=== PATIENT | female | born 1970 | race Caucasian/White ===

== ENCOUNTER 2019-04-01 05:19 | Inpatient (IN) ==
[2019-04-01] MEDS ORDERED: 0.9 % Sodium Chloride 1,000 ML ONE ×4 (05:29→07:24)
[2019-04-01] MEDS ORDERED: Heparin 1,000 UNITS/500 mL 500 ML ONE (05:29)
[2019-04-01] MEDS ORDERED: Verapamil 5 MG/2 ML VIAL ONE (05:29)
[2019-04-01] MEDS ORDERED: ISOVUE-370 200 ML INFUS..BTL ONE (05:30)
[2019-04-01] MEDS ORDERED: *HR* Heparin 10,000 UNIT/10 ML VIAL ONE (05:30)
[2019-04-01] MEDS ORDERED: Nitroglycerin 1,000 MCG/10 ML VIAL IV ONE (05:30)
[2019-04-01] MEDS ORDERED: *HR* Norepinephrine 4 MG/4 ML VIAL IVC ONE (06:26)
[2019-04-01] MEDS ORDERED: 0.9 % Sodium Chloride 250 ML ONE (06:26)
[2019-04-01] MEDS ORDERED: 0.9 % Sodium Chloride 500 ML ONE ×3 (07:02→08:28)
[2019-04-01] MEDS ORDERED: EPINEPHrine 1 MG/ML VIAL ONE (07:08)
[2019-04-01] MEDS ORDERED: D5% in Water 250 ML ONE (07:08)
[2019-04-01] MEDS ORDERED: *HR* FentaNYL (PF) 100 MCG/2 ML VIAL ONE (07:27)
[2019-04-01] MEDS ORDERED: Heparin 25,000 UNIT/250 ML D5W 25,000 UNIT/250 ML IV.SOLN IVC ONE (07:47)
[2019-04-01] MEDS ORDERED: *HR* Heparin 5,000 UNIT/ML VIAL IVP PRN ×2 (07:50)
[2019-04-01 08:11] LABS: Basophils % 0.2 %; Eosinophils # 0.1 K/mcL (0.0-0.6); Eosinophils % 0.4 %; Hemoglobin 11.1 g/dL (11.5-15.4); Immature Granulocytes % 1.9 % (0-4); Lymphocytes # 2.2 K/mcL (0.6-4.6); Lymphocytes % 15.8 %; Mean Corpuscular HGB Conc 30.8 g/dL (31.6-35.5); Mean Corpuscular Hemoglobin 32.8 pg (28.0-33.3); Mean Corpuscular Volume 106.5 fL (83.0-100.0); Mean Platelet Volume 9.8 fL (9.4-12.4); Monocytes # 0.4 K/mcL (0.0-1.3); Monocytes % 2.7 %; Neutrophils # 11.1 K/mcL (1.6-8.9); Platelet Count 229 K/mcL (140-400); Red Blood Count 3.38 M/mcL (3.82-4.97); Red Cell Distribution Width 12.6 % (11.5-14.5); White Blood Count 14.1 K/mcL (4.3-11.1)
[2019-04-01] MEDS ORDERED: Sodium Bicarbonate 50 MEQ/50 ML VIAL IVP ONE ×2 (08:21→13:07)
[2019-04-01] MEDS ORDERED: Insulin Regular, Human 100 UNIT/ML IV ONE (08:31)
[2019-04-01] MEDS ORDERED: Insulin Regular, Human 100 UNIT/ML IV PRN ×2 (08:31)
[2019-04-01] MEDS ORDERED: Ringers Solution, Lactated 1,000 ML IVC ONE ×2 (08:32→11:19)
[2019-04-01 08:41] LABS: BUN/Creatinine Ratio 29 (6-26); Blood Urea Nitrogen 32 mg/dL (6-20); Calcium 6.5 mg/dL (8.6-10.3); Carbon Dioxide 5 mEq/L (23-29); Chloride 108 mEq/L (98-107); Glucose 820 mg/dL (70-105); Osmolality,Calculated 343 (280-300); Potassium 3.3 mEq/L (3.5-5.1); Sodium 143 mEq/L (136-145); Troponin I 14.28 ng/mL (< 0.04); eGFR For African Americans > 60 (> 60); eGFR For Non-African Americans 53 (> 60)
[2019-04-01] MEDS ORDERED: Norepinephrine 4 MG in 0.9 % Sodium Chloride 250 ML IVC SCH (08:45)
[2019-04-01 09:21] LABS: ABG Base Excess -26 mEq/L (-2 to 3); ABG HCO3 6 mEq/L (21-27); ABG Oxygen Saturation 100 % (95-98); ABG PCO2 32 mmHg (35-45); ABG PH 6.88 pH Units (7.32-7.45); ABG PO2 290 mmHg (85-104); ABG TCO2 7 mEq/L (20-26); Blood Gas Modality ASSIST CONTROL; Blood Gas VT 550 cc
[2019-04-01] MEDS: Sodium Bicarbonate 150 MEQ in D5% in Water 1,000 ML IVC SCH ×2 (09:23→16:10)
[2019-04-01] MEDS: Heparin 25,000 UNIT/250 ML D5W 25,000 UNIT/250 ML IV.SOLN IVC SCH (09:25)
[2019-04-01] MEDS: EPINEPHrine 1 MG in D5% in Water 250 ML IVC SCH ×2 (09:25→12:57)
[2019-04-01] MEDS: Insulin Human Regular 100 UNIT in 0.9 % Sodium Chloride 100 ML IVC SCH ×3 (10:09→18:42)
[2019-04-01] MEDS ORDERED: Amiodarone Premix 150 MG/100 ML BAG IVPB ONE (10:55)
[2019-04-01] MEDS ORDERED: Amiodarone Premix 360 MG/200 ML BAG IVC ONE (10:55)
[2019-04-01 11:24] LABS: Alanine Aminotransferase 99 Units/L (7-52); Aspartate Amino Transferase 259 Units/L (13-39)
[2019-04-01] MEDS: FentaNYL (PF) 1,000 MCG in 0.9 % Sodium Chloride 80 ML IVC SCH ×3 (11:38→18:30)
[2019-04-01] MEDS: Amiodarone Premix 360 MG/200 ML BAG IVC SCH ×2 (11:38→16:53)
[2019-04-01] MEDS ORDERED: Norepinephrine 16 MG in 0.9 % Sodium Chloride 250 ML IVC SCH (11:45)
[2019-04-01] MEDS ORDERED: Artificial Tears SOLN 15 ML BOTTLE BOTH EYES PRN (11:46)
[2019-04-01 11:52] LABS: Alanine Aminotransferase 192 Units/L (7-52); Albumin 2.9 g/dL (3.5-5.7); Albumin/Globulin Ratio 1.4 (1.1-2.2); Alkaline Phosphatase 128 Units/L (34-104); Aspartate Amino Transferase 706 Units/L (13-39); BUN/Creatinine Ratio 26 (6-26); Bilirubin,Total 0.8 mg/dL (0.3-1.0); Blood Urea Nitrogen 28 mg/dL (6-20); Calcium 6.3 mg/dL (8.6-10.3); Carbon Dioxide 6 mEq/L (23-29); Chloride 110 mEq/L (98-107); Globulin 2.1 g/dL (2.4-3.5); Glucose 764 mg/dL (70-105); Magnesium 1.8 mg/dL (1.6-2.6); Osmolality,Calculated 340 (280-300); Phosphorous 3.4 mg/dL (2.7-4.5); Potassium 3.3 mEq/L (3.5-5.1); Sodium 144 mEq/L (136-145); eGFR For African Americans > 60 (> 60); eGFR For Non-African Americans 55 (> 60)
[2019-04-01] MEDS: Pantoprazole 40 MG VIAL IVP SCH (11:56)
[2019-04-01] MEDS: Artificial Tears SOLN 15 ML BOTTLE BOTH EYES SCH ×4 (12:01→23:17)
[2019-04-01] MEDS: Calcium Gluconate 1gm/50mL 1 GM/50 ML BAG IVPB SCH ×5 (12:27→16:51)
[2019-04-01 12:45] LABS: Amphetamine Screen,Urine Negative ng/mL (Cutoff=1000); Barbiturate Screen,Urine Negative ng/mL (Cutoff=200); Benzodiazepines Screen,Urine Positive ng/mL (Cutoff=200); Cannabinoid Screen,Urine Negative ng/mL (Cutoff = 50); Cocaine Screen,Urine Negative ng/mL (Cutoff= 300); Opiate Screen,Urine Negative ng/mL (Cutoff=300); Phencyclidine Screen,Urine Negative ng/mL (Cutoff=25)
[2019-04-01] MEDS: Norepinephrine 16 MG in 0.9 % Sodium Chloride 500 ML IVC SCH (12:46)
[2019-04-01 13:02] LABS: VBG HCO3 5 mEq/L (21-27); VBG PCO2 42 mmHg (41-51); VBG PH 6.71 pH Units (7.32-7.42); VBG PO2 80 mmHg (25-50)
[2019-04-01 13:06] LABS: INR 1.1; Prothrombin Time 12.8 Seconds (9.4-12.1)
[2019-04-01] MEDS ORDERED: Sodium Bicarbonate 50 MEQ/50 ML VIAL ONE (13:13)
[2019-04-01 13:19] LABS: ABG Base Excess -26 mEq/L (-2 to 3); ABG HCO3 5 mEq/L (21-27); ABG Oxygen Saturation 99 % (95-98); ABG PCO2 27 mmHg (35-45); ABG PO2 247 mmHg (85-104); ABG TCO2 6 mEq/L (20-26); Blood Gas Modality ASSIST CONTROL; Blood Gas VT 550 cc
[2019-04-01] MEDS ORDERED: Potassium Chloride Elixir 20 MEQ/15 ML UDC PO ONE (13:20)
[2019-04-01 13:21] LABS: BUN/Creatinine Ratio 25 (6-26); Blood Urea Nitrogen 28 mg/dL (6-20); Calcium 6.6 mg/dL (8.6-10.3); Carbon Dioxide 6 mEq/L (23-29); Chloride 109 mEq/L (98-107); Glucose 748 mg/dL (70-105); Osmolality,Calculated 338 (280-300); Potassium 3.1 mEq/L (3.5-5.1); Sodium 143 mEq/L (136-145); eGFR For African Americans > 60 (> 60); eGFR For Non-African Americans 53 (> 60)
[2019-04-01 13:44] LABS: Heparin anti-factor XA UFH 1.18 IU/mL (0.30-0.70)
[2019-04-01] MEDS: EPINEPHrine 5 MG in D5% in Water 250 ML IVC SCH ×2 (14:32→16:02)
[2019-04-01 15:06] LABS: BUN/Creatinine Ratio 26 (6-26); Blood Urea Nitrogen 29 mg/dL (6-20); Calcium 7.4 mg/dL (8.6-10.3); Carbon Dioxide 11 mEq/L (23-29); Chloride 107 mEq/L (98-107); Glucose 821 mg/dL (70-105); Osmolality,Calculated 348 (280-300); Potassium 3.5 mEq/L (3.5-5.1); Sodium 146 mEq/L (136-145); eGFR For African Americans > 60 (> 60); eGFR For Non-African Americans 52 (> 60)
[2019-04-01] MEDS: Hydrocortisone Sodium Succ 100 MG/2 ML VIAL IVP SCH ×2 (15:12→23:33)
[2019-04-01] MEDS: Cisatracurium 200 MG in 0.9 % Sodium Chloride 180 ML IVC SCH (15:54)
[2019-04-01 16:02] LABS: VBG HCO3 10 mEq/L (21-27); VBG PCO2 33 mmHg (41-51); VBG PH 7.09 pH Units (7.32-7.42); VBG PO2 81 mmHg (25-50)
[2019-04-01 16:17] LABS: BUN/Creatinine Ratio 25 (6-26); Blood Urea Nitrogen 28 mg/dL (6-20); Carbon Dioxide 10 mEq/L (23-29); Chloride 109 mEq/L (98-107); Glucose 756 mg/dL (70-105); Osmolality,Calculated 342 (280-300); Potassium 3.6 mEq/L (3.5-5.1); Sodium 145 mEq/L (136-145); eGFR For African Americans > 60 (> 60); eGFR For Non-African Americans 52 (> 60)
[2019-04-01 16:24] LABS: Troponin I > 73.00 ng/mL (< 0.04)
[2019-04-01 17:38] LABS: ABG Base Excess -10 mEq/L (-2 to 3); ABG HCO3 13 mEq/L (21-27); ABG Oxygen Saturation 100 % (95-98); ABG PCO2 20 mmHg (35-45); ABG PH 7.43 pH Units (7.32-7.45); ABG PO2 470 mmHg (85-104); ABG TCO2 14 mEq/L (20-26); Blood Gas Modality ASSIST CONTROL; Blood Gas VT 550 cc
[2019-04-01] MEDS: Cefepime HCl 2,000 MG in 0.9 % Sodium Chloride Mini Bag 100 ML IVPB SCH (17:48)
[2019-04-01 17:50] LABS: VBG HCO3 14 mEq/L (21-27); VBG Ionized Calcium 1.13 mmol/L (1.15-1.35); VBG PCO2 30 mmHg (41-51); VBG PH 7.27 pH Units (7.32-7.42); VBG PO2 128 mmHg (25-50)
[2019-04-01 18:13] LABS: BUN/Creatinine Ratio 24 (6-26); Blood Urea Nitrogen 28 mg/dL (6-20); Carbon Dioxide 14 mEq/L (23-29); Chloride 106 mEq/L (98-107); Glucose 696 mg/dL (70-105); Magnesium 2.2 mg/dL (1.6-2.6); Osmolality,Calculated 335 (280-300); Phosphorous < 1.0 mg/dL (2.7-4.5); Potassium 3.6 mEq/L (3.5-5.1); Sodium 143 mEq/L (136-145); eGFR For African Americans 59 (> 60); eGFR For Non-African Americans 48 (> 60)
[2019-04-01] MEDS ORDERED: Potassium Phosphate 44 MEQ in 0.9 % Sodium Chloride 250 ML IVPB ONE (18:14)
[2019-04-01 20:23] LABS: VBG HCO3 17 mEq/L (21-27); VBG PCO2 29 mmHg (41-51); VBG PH 7.38 pH Units (7.32-7.42); VBG PO2 89 mmHg (25-50)
[2019-04-01 20:27] LABS: ABG Base Excess -5 mEq/L (-2 to 3); ABG HCO3 17 mEq/L (21-27); ABG Oxygen Saturation 100 % (95-98); ABG PCO2 22 mmHg (35-45); ABG PH 7.49 pH Units (7.32-7.45); ABG PO2 164 mmHg (85-104); ABG TCO2 18 mEq/L (20-26); Blood Gas Modality ASSIST CONTROL; Blood Gas VT 550 cc
[2019-04-01] MEDS: Chlorhexidine Rinse 15 ML MOUTHWASH MM SCH (20:34)
[2019-04-01] MEDS: *HR* Ticagrelor 90 MG TABLET PO SCH (20:35)
[2019-04-01 21:04] LABS: BUN/Creatinine Ratio 25 (6-26); Blood Urea Nitrogen 31 mg/dL (6-20); Carbon Dioxide 17 mEq/L (23-29); Chloride 109 mEq/L (98-107); Glucose 513 mg/dL (70-105); Osmolality,Calculated 334 (280-300); Potassium 3.7 mEq/L (3.5-5.1); Sodium 147 mEq/L (136-145); Troponin I > 73.00 ng/mL (< 0.04); eGFR For African Americans 55 (> 60); eGFR For Non-African Americans 46 (> 60)
[2019-04-01] MEDS: 0.45 % Sodium Chloride w/KCl 20 MEQ/1,000 ML MLS IVC SCH (22:20)
[2019-04-01 23:35] LABS: Potassium 3.5 mEq/L (3.5-5.1)
[2019-04-02 00:21] LABS: VBG HCO3 22 mEq/L (21-27); VBG PCO2 30 mmHg (41-51); VBG PH 7.47 pH Units (7.32-7.42); VBG PO2 217 mmHg (25-50)
[2019-04-02 00:38] LABS: Calcium 7.9 mg/dL (8.6-10.3); Phosphorous 1.2 mg/dL (2.7-4.5); Potassium 3.5 mEq/L (3.5-5.1)
[2019-04-02] MEDS: 0.45 % Sodium Chloride w/KCl 20 MEQ/1,000 ML MLS IVC SCH ×2 (02:29→03:12)
[2019-04-02] MEDS: D5% in 0.45% NACL w KCl 20 MEQ/1,000 ML MLS IVC SCH ×6 (02:30→22:22)
[2019-04-02 02:36] LABS: VBG HCO3 24 mEq/L (21-27); VBG PCO2 28 mmHg (41-51); VBG PH 7.55 pH Units (7.32-7.42); VBG PO2 301 mmHg (25-50)
[2019-04-02 02:52] LABS: Calcium 7.8 mg/dL (8.6-10.3); Potassium 3.7 mEq/L (3.5-5.1)
[2019-04-02 02:56] LABS: ABG Base Excess 3 mEq/L (-2 to 3); ABG HCO3 25 mEq/L (21-27); ABG Oxygen Saturation 99 % (95-98); ABG PCO2 27 mmHg (35-45); ABG PH 7.57 pH Units (7.32-7.45); ABG PO2 117 mmHg (85-104); ABG TCO2 25 mEq/L (20-26); Blood Gas Modality ASSIST CONTROL; Blood Gas VT 450 cc
[2019-04-02] MEDS: Artificial Tears SOLN 15 ML BOTTLE BOTH EYES SCH ×6 (03:09→23:38)
[2019-04-02 04:16] LABS: VBG HCO3 25 mEq/L (21-27); VBG PCO2 28 mmHg (41-51); VBG PH 7.56 pH Units (7.32-7.42); VBG PO2 297 mmHg (25-50)
[2019-04-02] MEDS: Amiodarone Premix 360 MG/200 ML BAG IVC SCH ×2 (04:20→15:03)
[2019-04-02 04:45] LABS: Albumin 2.6 g/dL (3.5-5.7); Albumin/Globulin Ratio 1.4 (1.1-2.2); Bilirubin,Direct 0.2 mg/dL (0.0-0.2); Bilirubin,Indirect 0.2 mg/dL (0.0-1.0); Bilirubin,Total 0.4 mg/dL (0.3-1.0); Globulin 1.8 g/dL (2.4-3.5); Magnesium 1.8 mg/dL (1.6-2.6); Phosphorous 1.1 mg/dL (2.7-4.5); Total Protein 4.4 g/dL (6.4-8.9)
[2019-04-02] MEDS: FentaNYL (PF) 1,000 MCG in 0.9 % Sodium Chloride 80 ML IVC SCH ×3 (04:50→19:25)
[2019-04-02] MEDS: Cefepime HCl 2,000 MG in 0.9 % Sodium Chloride Mini Bag 100 ML IVPB SCH ×2 (05:26→16:29)
[2019-04-02 05:31] LABS: VBG HCO3 24 mEq/L (21-27); VBG PCO2 29 mmHg (41-51); VBG PH 7.52 pH Units (7.32-7.42); VBG PO2 222 mmHg (25-50)
[2019-04-02 05:50] LABS: Calcium 7.4 mg/dL (8.6-10.3); Potassium 3.7 mEq/L (3.5-5.1)
[2019-04-02] MEDS ORDERED: Potassium Phosphate 44 MEQ in 0.9 % Sodium Chloride 250 ML IVPB ONE (06:39)
[2019-04-02] MEDS: Insulin Human Regular 100 UNIT in 0.9 % Sodium Chloride 100 ML IVC SCH ×3 (07:16→15:08)
[2019-04-02 07:17] LABS: VBG Ionized Calcium 1.04 mmol/L (1.15-1.35)
[2019-04-02] MEDS: Norepinephrine 16 MG in 0.9 % Sodium Chloride 500 ML IVC SCH (07:17)
[2019-04-02 07:23] LABS: Basophils % 0.1 %; Eosinophils % 0.3 %; Hematocrit 30.2 % (35.3-44.9); Hemoglobin 10.8 g/dL (11.5-15.4); Immature Granulocytes % 0.4 % (0-4); Lymphocytes # 0.8 K/mcL (0.6-4.6); Lymphocytes % 11.6 %; Mean Corpuscular HGB Conc 35.8 g/dL (31.6-35.5); Mean Corpuscular Hemoglobin 32.7 pg (28.0-33.3); Mean Corpuscular Volume 91.5 fL (83.0-100.0); Mean Platelet Volume 9.7 fL (9.4-12.4); Monocytes # 0.5 K/mcL (0.0-1.3); Monocytes % 6.7 %; Neutrophils # 5.8 K/mcL (1.6-8.9); Platelet Count 208 K/mcL (140-400); Segmented Neutrophils % 80.9 %; White Blood Count 7.1 K/mcL (4.3-11.1)
[2019-04-02] MEDS: Heparin 25,000 UNIT/250 ML D5W 25,000 UNIT/250 ML IV.SOLN IVC SCH (07:23)
[2019-04-02] MEDS: Chlorhexidine Rinse 15 ML MOUTHWASH MM SCH ×2 (07:31→19:25)
[2019-04-02] MEDS: Pantoprazole 40 MG VIAL IVP SCH (07:31)
[2019-04-02] MEDS: Hydrocortisone Sodium Succ 100 MG/2 ML VIAL IVP SCH ×3 (07:31→23:37)
[2019-04-02] MEDS: *HR* Ticagrelor 90 MG TABLET PO SCH ×2 (07:32→19:25)
[2019-04-02] MEDS: Aspirin 81 MG TAB.CHEW PO SCH (07:32)
[2019-04-02] MEDS: Calcium Gluconate 1gm/50mL 1 GM/50 ML BAG IVPB SCH ×2 (08:45→09:34)
[2019-04-02 09:27] LABS: ABG Base Excess -1 mEq/L (-2 to 3); ABG HCO3 25 mEq/L (21-27); ABG Oxygen Saturation 98 % (95-98); ABG PCO2 43 mmHg (35-45); ABG PH 7.37 pH Units (7.32-7.45); ABG PO2 111 mmHg (85-104); ABG TCO2 26 mEq/L (20-26); Blood Gas Modality VC; Blood Gas VT 380 cc
[2019-04-02] MEDS ORDERED: Calcium Gluconate 1gm/50mL 1 GM/50 ML BAG IVPB PRN (11:00)
[2019-04-02 11:07] LABS: Heparin anti-factor XA UFH 0.13 IU/mL (0.30-0.70)
[2019-04-02 11:08] LABS: Prothrombin Time 10.9 Seconds (9.4-12.1)
[2019-04-02 11:17] LABS: Magnesium 2.5 mg/dL (1.6-2.6)
[2019-04-02] MEDS: Cisatracurium 200 MG in 0.9 % Sodium Chloride 180 ML IVC SCH (13:24)
[2019-04-02 16:34] LABS: Bilirubin,Urine Small (Negative); Blood,Urine Large (Negative); Clarity,Urine Turbid (Clear); Color,Urine Dark Yellow (Yellow); Glucose,Urine (UA) Normal (Normal); Ketones,Urine Trace mg/dL (Negative); Leukocyte Esterase,Urine Negative (Negative); Nitrite,Urine Negative (Negative); PH,Urine 5.5 pH Units (5.0-8.0); Protein,Urine 30 mg/dL (Neg-Trace); Specific Gravity,Urine > 1.030 (1.010-1.025); Urobilinogen,Urine Normal (Normal)
[2019-04-02 16:40] LABS: Bacteria,Urine None Seen per hpf (None-Few); Squamous Epithelial Cell,Urine Many per lpf (None-Few); WBC,Urine 50-100 per hpf (0-3)
[2019-04-02 17:04] LABS: Granular Casts,Urine Few per lpf (None Seen); Hyaline Casts,Urine Few per lpf (None-Few); Mucus,Urine Few per lpf (Few); RBC,Urine 15-30 per hpf (0-3)
[2019-04-03] MEDS: D5% in 0.45% NACL w KCl 20 MEQ/1,000 ML MLS IVC SCH ×3 (00:23→08:03)
[2019-04-03 00:36] LABS: ABG Base Excess 0 mEq/L (-2 to 3); ABG HCO3 25 mEq/L (21-27); ABG Oxygen Saturation 99 % (95-98); ABG PCO2 40 mmHg (35-45); ABG PO2 121 mmHg (85-104); ABG TCO2 26 mEq/L (20-26); Blood Gas Modality ASSIST CONTROL; Blood Gas VT 380 cc
[2019-04-03 01:04] LABS: Basophils % 0.1 %; Eosinophils % 0.2 %; Hemoglobin 10.3 g/dL (11.5-15.4); Immature Granulocytes % 0.5 % (0-4); Lymphocytes # 2.3 K/mcL (0.6-4.6); Lymphocytes % 21.6 %; Mean Corpuscular HGB Conc 35.5 g/dL (31.6-35.5); Mean Corpuscular Hemoglobin 33.1 pg (28.0-33.3); Mean Corpuscular Volume 93.2 fL (83.0-100.0); Mean Platelet Volume 9.6 fL (9.4-12.4); Monocytes # 0.5 K/mcL (0.0-1.3); Monocytes % 4.3 %; Neutrophils # 7.7 K/mcL (1.6-8.9); Platelet Count 176 K/mcL (140-400); Red Blood Count 3.11 M/mcL (3.82-4.97); Red Cell Distribution Width 13.4 % (11.5-14.5); Segmented Neutrophils % 73.3 %; White Blood Count 10.5 K/mcL (4.3-11.1)
[2019-04-03 01:12] LABS: Prothrombin Time 11.8 Seconds (9.4-12.1)
[2019-04-03 01:15] LABS: Activated Partial Thrombo Time 33.9 Seconds (26.0-36.0)
[2019-04-03] MEDS: *HR* Dextrose 50 % in Water (Syg) 50 ML SYRINGE IVP PRN (02:19)
[2019-04-03] MEDS: Artificial Tears SOLN 15 ML BOTTLE BOTH EYES SCH ×6 (04:04→23:27)
[2019-04-03] MEDS: Amiodarone Premix 360 MG/200 ML BAG IVC SCH (04:04)
[2019-04-03 04:50] LABS: ABG Base Excess -4 mEq/L (-2 to 3); ABG HCO3 22 mEq/L (21-27); ABG Oxygen Saturation 97 % (95-98); ABG PCO2 40 mmHg (35-45); ABG PH 7.34 pH Units (7.32-7.45); ABG PO2 92 mmHg (85-104); ABG TCO2 23 mEq/L (20-26); Blood Gas VT 380 cc
[2019-04-03] MEDS: Cefepime HCl 2,000 MG in 0.9 % Sodium Chloride Mini Bag 100 ML IVPB SCH ×2 (05:13→16:45)
[2019-04-03 05:58] LABS: Hematocrit 28.6 % (35.3-44.9); Hemoglobin 9.8 g/dL (11.5-15.4); Immature Granulocytes % 0.6 % (0-4); Lymphocytes # 0.8 K/mcL (0.6-4.6); Lymphocytes % 7.3 %; Mean Corpuscular HGB Conc 34.3 g/dL (31.6-35.5); Mean Corpuscular Volume 96.3 fL (83.0-100.0); Mean Platelet Volume 9.7 fL (9.4-12.4); Monocytes # 0.2 K/mcL (0.0-1.3); Monocytes % 1.8 %; Neutrophils # 10.1 K/mcL (1.6-8.9); Platelet Count 159 K/mcL (140-400); Red Blood Count 2.97 M/mcL (3.82-4.97); Red Cell Distribution Width 14.1 % (11.5-14.5); Segmented Neutrophils % 90.3 %; White Blood Count 11.2 K/mcL (4.3-11.1)
[2019-04-03] MEDS: FentaNYL (PF) 1,000 MCG in 0.9 % Sodium Chloride 80 ML IVC SCH ×2 (06:09→17:54)
[2019-04-03 06:18] LABS: Albumin 2.5 g/dL (3.5-5.7); Albumin/Globulin Ratio 1.3 (1.1-2.2); Bilirubin,Total 0.3 mg/dL (0.3-1.0); Calcium 7.3 mg/dL (8.6-10.3); Magnesium 2.4 mg/dL (1.6-2.6); Phosphorous 4.1 mg/dL (2.7-4.5); Potassium 3.6 mEq/L (3.5-5.1); Total Protein 4.5 g/dL (6.4-8.9)
[2019-04-03] MEDS: Hydrocortisone Sodium Succ 100 MG/2 ML VIAL IVP SCH (08:01)
[2019-04-03] MEDS: *HR* Ticagrelor 90 MG TABLET PO SCH (08:01)
[2019-04-03] MEDS: Chlorhexidine Rinse 15 ML MOUTHWASH MM SCH ×2 (08:01→20:32)
[2019-04-03] MEDS: Pantoprazole 40 MG VIAL IVP SCH ×2 (08:01→20:32)
[2019-04-03] MEDS: Aspirin 81 MG TAB.CHEW PO SCH (08:01)
[2019-04-03] MEDS: Heparin 25,000 UNIT/250 ML D5W 25,000 UNIT/250 ML IV.SOLN IVC SCH (08:02)
[2019-04-03] MEDS ORDERED: D5% in Water 1,000 ML IVC ONE (08:40)
[2019-04-03 10:35] LABS: ABG Base Excess -2 mEq/L (-2 to 3); ABG HCO3 24 mEq/L (21-27); ABG Oxygen Saturation 81 % (95-98); ABG PCO2 41 mmHg (35-45); ABG PH 7.37 pH Units (7.32-7.45); ABG PO2 47 mmHg (85-104); ABG TCO2 25 mEq/L (20-26); Blood Gas VT 400 cc
[2019-04-03] MEDS ORDERED: *HR* Amiodarone 200 MG TABLET PO SCH (11:00)
[2019-04-03] MEDS ORDERED: Dextrose Gel 15 GM/37.5 ML TUBE PO PRN (11:53)
[2019-04-03] MEDS: D5% in Water 1,000 ML IVC SCH ×2 (12:51→23:26)
[2019-04-03] MEDS: Insulin LISPRO 300 UNITS/3 ML VIAL SQ SCH ×3 (12:56→23:27)
[2019-04-03] MEDS: EPINEPHrine 5 MG in D5% in Water 250 ML IVC SCH (13:08)
[2019-04-03] MEDS: Cisatracurium 200 MG in 0.9 % Sodium Chloride 180 ML IVC SCH (13:09)
[2019-04-03] MEDS: Potassium Chloride 40 MEQ/200 ML BAG IVPB PRN ×2 (14:12→15:41)
[2019-04-03] MEDS ORDERED: *HR* Atropine Sulfate 1 MG/10 ML SYRINGE ONE (16:31)
[2019-04-03 16:34] LABS: Basophils % 0.1 %; Hematocrit 29.3 % (35.3-44.9); Immature Granulocytes % 1.5 % (0-4); Lymphocytes # 1.1 K/mcL (0.6-4.6); Lymphocytes % 7.9 %; Mean Corpuscular HGB Conc 34.1 g/dL (31.6-35.5); Mean Corpuscular Hemoglobin 32.5 pg (28.0-33.3); Mean Corpuscular Volume 95.1 fL (83.0-100.0); Mean Platelet Volume 9.8 fL (9.4-12.4); Monocytes # 0.5 K/mcL (0.0-1.3); Monocytes % 3.7 %; Neutrophils # 12.3 K/mcL (1.6-8.9); Platelet Count 149 K/mcL (140-400); Red Blood Count 3.08 M/mcL (3.82-4.97); Red Cell Distribution Width 14.6 % (11.5-14.5); Segmented Neutrophils % 86.8 %; White Blood Count 14.2 K/mcL (4.3-11.1)
[2019-04-03] MEDS: Norepinephrine 16 MG in 0.9 % Sodium Chloride 500 ML IVC SCH (16:45)
[2019-04-03 16:51] LABS: Calcium 7.3 mg/dL (8.6-10.3); Magnesium 2.4 mg/dL (1.6-2.6); Potassium 4.3 mEq/L (3.5-5.1)
[2019-04-03 20:16] LABS: ABG Base Excess 3 mEq/L (-2 to 3); ABG HCO3 27 mEq/L (21-27); ABG Oxygen Saturation 96 % (95-98); ABG PCO2 39 mmHg (35-45); ABG PH 7.45 pH Units (7.32-7.45); ABG PO2 75 mmHg (85-104); ABG TCO2 28 mEq/L (20-26); Blood Gas Modality AF; Blood Gas VT 400 cc
[2019-04-04 04:34] LABS: Basophils % 0.1 %; Eosinophils % 0.2 %; Hematocrit 28.9 % (35.3-44.9); Hemoglobin 9.7 g/dL (11.5-15.4); Immature Granulocytes % 1.1 % (0-4); Lymphocytes # 1.9 K/mcL (0.6-4.6); Lymphocytes % 14.3 %; Mean Corpuscular HGB Conc 33.6 g/dL (31.6-35.5); Mean Corpuscular Hemoglobin 32.8 pg (28.0-33.3); Mean Corpuscular Volume 97.6 fL (83.0-100.0); Mean Platelet Volume 10.3 fL (9.4-12.4); Monocytes # 0.4 K/mcL (0.0-1.3); Monocytes % 3.1 %; Neutrophils # 10.6 K/mcL (1.6-8.9); Platelet Count 154 K/mcL (140-400); Red Blood Count 2.96 M/mcL (3.82-4.97); Red Cell Distribution Width 14.6 % (11.5-14.5); Segmented Neutrophils % 81.2 %; White Blood Count 13.1 K/mcL (4.3-11.1)
[2019-04-04] MEDS: Artificial Tears SOLN 15 ML BOTTLE BOTH EYES SCH ×6 (04:37→23:57)
[2019-04-04 04:41] LABS: VBG Ionized Calcium 0.99 mmol/L (1.15-1.35)
[2019-04-04] MEDS: FentaNYL (PF) 1,000 MCG in 0.9 % Sodium Chloride 80 ML IVC SCH ×2 (05:24→18:35)
[2019-04-04] MEDS: Insulin LISPRO 300 UNITS/3 ML VIAL SQ SCH ×5 (05:59→23:56)
[2019-04-04] MEDS: Cefepime HCl 2,000 MG in 0.9 % Sodium Chloride Mini Bag 100 ML IVPB SCH ×2 (06:00→16:38)
[2019-04-04 06:43] LABS: BUN/Creatinine Ratio 33 (6-26); Blood Urea Nitrogen 26 mg/dL (6-20); Calcium 7.5 mg/dL (8.6-10.3); Carbon Dioxide 25 mEq/L (23-29); Chloride 111 mEq/L (98-107); Glucose 233 mg/dL (70-105); Magnesium 2.3 mg/dL (1.6-2.6); Osmolality,Calculated 314 (280-300); Phosphorous 2.1 mg/dL (2.7-4.5); Potassium 3.6 mEq/L (3.5-5.1); Sodium 146 mEq/L (136-145); eGFR For African Americans > 60 (> 60); eGFR For Non-African Americans > 60 (> 60)
[2019-04-04] MEDS: Aspirin 81 MG TAB.CHEW PO SCH (07:45)
[2019-04-04] MEDS: Insulin Human Regular 100 UNIT in 0.9 % Sodium Chloride 100 ML IVC SCH (07:46)
[2019-04-04] MEDS: Pantoprazole 40 MG VIAL IVP SCH ×2 (07:46→19:51)
[2019-04-04] MEDS: Chlorhexidine Rinse 15 ML MOUTHWASH MM SCH ×2 (07:46→19:50)
[2019-04-04 07:51] LABS: ABG Base Excess 1 mEq/L (-2 to 3); ABG HCO3 25 mEq/L (21-27); ABG Oxygen Saturation 98 % (95-98); ABG PCO2 35 mmHg (35-45); ABG PH 7.47 pH Units (7.32-7.45); ABG PO2 96 mmHg (85-104); ABG TCO2 26 mEq/L (20-26); Blood Gas Modality ASSIST CONTROL; Blood Gas VT 400 cc
[2019-04-04] MEDS: Potassium Phosphate 44 MEQ in 0.9 % Sodium Chloride 250 ML IVPB PRN ×2 (09:24→23:29)
[2019-04-04] MEDS: EPINEPHrine 5 MG in D5% in Water 250 ML IVC SCH (11:35)
[2019-04-04] MEDS: Norepinephrine 16 MG in 0.9 % Sodium Chloride 500 ML IVC SCH (11:35)
[2019-04-04] MEDS: Cisatracurium 200 MG in 0.9 % Sodium Chloride 180 ML IVC SCH (11:36)
[2019-04-04] MEDS: MetroNIDAZOLE 500 MG/100 ML 500 MG/100 ML BAG IVPB SCH ×2 (16:39→23:54)
[2019-04-04 16:52] LABS: VBG Ionized Calcium 1.14 mmol/L (1.15-1.35)
[2019-04-05] MEDS: Artificial Tears SOLN 15 ML BOTTLE BOTH EYES SCH ×6 (04:12→23:52)
[2019-04-05] MEDS: Insulin LISPRO 300 UNITS/3 ML VIAL SQ SCH ×6 (04:12→23:54)
[2019-04-05 04:38] LABS: VBG Ionized Calcium 1.09 mmol/L (1.15-1.35)
[2019-04-05 04:40] LABS: ABG Base Excess -1 mEq/L (-2 to 3); ABG HCO3 24 mEq/L (21-27); ABG Oxygen Saturation 99 % (95-98); ABG PCO2 35 mmHg (35-45); ABG PH 7.43 pH Units (7.32-7.45); ABG PO2 121 mmHg (85-104); ABG TCO2 25 mEq/L (20-26); Blood Gas Modality ASSIST CONTROL; Blood Gas VT 400 cc
[2019-04-05 04:48] LABS: Basophils % 0.1 %; Eosinophils # 0.1 K/mcL (0.0-0.6); Eosinophils % 1.6 %; Hematocrit 28.4 % (35.3-44.9); Hemoglobin 9.2 g/dL (11.5-15.4); Immature Granulocytes % 0.5 % (0-4); Lymphocytes # 1.3 K/mcL (0.6-4.6); Lymphocytes % 16.2 %; Mean Corpuscular HGB Conc 32.4 g/dL (31.6-35.5); Mean Corpuscular Volume 101.8 fL (83.0-100.0); Mean Platelet Volume 10.2 fL (9.4-12.4); Monocytes # 0.5 K/mcL (0.0-1.3); Platelet Count 111 K/mcL (140-400); Red Blood Count 2.79 M/mcL (3.82-4.97); Red Cell Distribution Width 14.3 % (11.5-14.5); Segmented Neutrophils % 75.6 %
[2019-04-05 05:05] LABS: Alanine Aminotransferase 133 Units/L (7-52); Albumin 2.6 g/dL (3.5-5.7); Albumin/Globulin Ratio 1.3 (1.1-2.2); Alkaline Phosphatase 143 Units/L (34-104); Aspartate Amino Transferase 81 Units/L (13-39); BUN/Creatinine Ratio 31 (6-26); Bilirubin,Total 0.5 mg/dL (0.3-1.0); Blood Urea Nitrogen 19 mg/dL (6-20); Calcium 7.5 mg/dL (8.6-10.3); Carbon Dioxide 23 mEq/L (23-29); Chloride 113 mEq/L (98-107); Glucose 185 mg/dL (70-105); Magnesium 2.1 mg/dL (1.6-2.6); Osmolality,Calculated 303 (280-300); Phosphorous 3.4 mg/dL (2.7-4.5); Potassium 4.4 mEq/L (3.5-5.1); Sodium 143 mEq/L (136-145); Total Protein 4.6 g/dL (6.4-8.9); eGFR For African Americans > 60 (> 60); eGFR For Non-African Americans > 60 (> 60)
[2019-04-05] MEDS: Cefepime HCl 2,000 MG in 0.9 % Sodium Chloride Mini Bag 100 ML IVPB SCH ×2 (05:26→15:57)
[2019-04-05] MEDS: Pantoprazole 40 MG VIAL IVP SCH ×2 (07:45→20:04)
[2019-04-05] MEDS: Aspirin 81 MG TAB.CHEW PO SCH (07:45)
[2019-04-05] MEDS: FentaNYL (PF) 1,000 MCG in 0.9 % Sodium Chloride 80 ML IVC SCH ×2 (07:45→20:05)
[2019-04-05] MEDS: Chlorhexidine Rinse 15 ML MOUTHWASH MM SCH ×2 (07:45→20:04)
[2019-04-05] MEDS: MetroNIDAZOLE 500 MG/100 ML 500 MG/100 ML BAG IVPB SCH ×3 (07:46→23:51)
[2019-04-05] MEDS: Insulin Human Regular 100 UNIT in 0.9 % Sodium Chloride 100 ML IVC SCH (07:47)
[2019-04-05] MEDS: Norepinephrine 16 MG in 0.9 % Sodium Chloride 500 ML IVC SCH (07:48)
[2019-04-05] MEDS: Cisatracurium 200 MG in 0.9 % Sodium Chloride 180 ML IVC SCH (07:48)
[2019-04-05] MEDS: EPINEPHrine 5 MG in D5% in Water 250 ML IVC SCH (07:48)
[2019-04-05] MEDS ORDERED: 0.9 % Sodium Chloride 250 ML ONE (14:37)
[2019-04-05] MEDS ORDERED: 0.9 % Sodium Chloride 1,000 ML ONE (16:40)
[2019-04-06] MEDS: Artificial Tears SOLN 15 ML BOTTLE BOTH EYES SCH ×2 (03:27→08:42)
[2019-04-06] MEDS: Insulin LISPRO 300 UNITS/3 ML VIAL SQ SCH ×6 (03:28→21:50)
[2019-04-06 04:20] LABS: Basophils % 0.2 %; Eosinophils # 0.1 K/mcL (0.0-0.6); Eosinophils % 2.3 %; Immature Granulocytes % 0.7 % (0-4); Immature Platelets 3.1 % (1.1-6.1); Lymphocytes # 1.1 K/mcL (0.6-4.6); Lymphocytes % 19.7 %; Mean Corpuscular HGB Conc 33.3 g/dL (31.6-35.5); Mean Corpuscular Hemoglobin 32.1 pg (28.0-33.3); Mean Corpuscular Volume 96.4 fL (83.0-100.0); Mean Platelet Volume 9.6 fL (9.4-12.4); Monocytes # 0.7 K/mcL (0.0-1.3); Monocytes % 12.4 %; Neutrophils # 3.6 K/mcL (1.6-8.9); Platelet Count 129 K/mcL (140-400); Red Cell Distribution Width 13.5 % (11.5-14.5); Segmented Neutrophils % 64.7 %; White Blood Count 5.6 K/mcL (4.3-11.1)
[2019-04-06 04:22] LABS: VBG Ionized Calcium 1.13 mmol/L (1.15-1.35)
[2019-04-06 04:45] LABS: ABG Base Excess 3 mEq/L (-2 to 3); ABG HCO3 27 mEq/L (21-27); ABG Oxygen Saturation 99 % (95-98); ABG PCO2 39 mmHg (35-45); ABG PH 7.44 pH Units (7.32-7.45); ABG PO2 110 mmHg (85-104); ABG TCO2 28 mEq/L (20-26); Blood Gas Modality AF; Blood Gas VT 400 cc
[2019-04-06 04:51] LABS: BUN/Creatinine Ratio 31 (6-26); Blood Urea Nitrogen 19 mg/dL (6-20); Calcium 7.4 mg/dL (8.6-10.3); Carbon Dioxide 25 mEq/L (23-29); Chloride 113 mEq/L (98-107); Glucose 157 mg/dL (70-105); Osmolality,Calculated 304 (280-300); Phosphorous 2.4 mg/dL (2.7-4.5); Potassium 3.9 mEq/L (3.5-5.1); Sodium 144 mEq/L (136-145); eGFR For African Americans > 60 (> 60); eGFR For Non-African Americans > 60 (> 60)
[2019-04-06] MEDS: Cefepime HCl 2,000 MG in 0.9 % Sodium Chloride Mini Bag 100 ML IVPB SCH (05:13)
[2019-04-06] MEDS: Potassium Chloride 40 MEQ/200 ML BAG IVPB PRN ×2 (05:14→06:21)
[2019-04-06] MEDS: Potassium Phosphate 44 MEQ in 0.9 % Sodium Chloride 250 ML IVPB PRN (05:48)
[2019-04-06] MEDS: MetroNIDAZOLE 500 MG/100 ML 500 MG/100 ML BAG IVPB SCH (07:38)
[2019-04-06] MEDS: Aspirin 81 MG TAB.CHEW PO SCH (07:43)
[2019-04-06] MEDS: Pantoprazole 40 MG VIAL IVP SCH ×2 (08:42→21:24)
[2019-04-06] MEDS: Chlorhexidine Rinse 15 ML MOUTHWASH MM SCH (08:42)
[2019-04-06] MEDS: Insulin Human Regular 100 UNIT in 0.9 % Sodium Chloride 100 ML IVC SCH (09:59)
[2019-04-06] MEDS: *HR* Heparin 5,000 UNIT/ML VIAL SQ SCH ×2 (10:04→16:16)
[2019-04-06] MEDS: EPINEPHrine 5 MG in D5% in Water 250 ML IVC SCH (14:18)
[2019-04-06] MEDS: *HR* HYDROcodone/Acet 5/325 mg TABLET PO PRN ×2 (14:23→15:35)
[2019-04-06] MEDS ORDERED: D5% in Water 1,000 ML IVC PRN (16:22)
[2019-04-06] MEDS ORDERED: Dextrose Gel 15 GM/37.5 ML TUBE PO PRN (16:22)
[2019-04-06] MEDS: Nicotine 21 MG PATCH.TD24 TD SCH (16:32)
[2019-04-07] MEDS: *HR* HYDROcodone/Acet 5/325 mg TABLET PO PRN ×3 (00:54→22:50)
[2019-04-07 04:39] LABS: Basophils % 0.2 %; Eosinophils # 0.2 K/mcL (0.0-0.6); Eosinophils % 3.2 %; Hematocrit 26.4 % (35.3-44.9); Hemoglobin 8.6 g/dL (11.5-15.4); Immature Granulocytes % 2.3 % (0-4); Lymphocytes # 1.6 K/mcL (0.6-4.6); Lymphocytes % 27.7 %; Mean Corpuscular HGB Conc 32.6 g/dL (31.6-35.5); Mean Corpuscular Volume 101.1 fL (83.0-100.0); Mean Platelet Volume 10.2 fL (9.4-12.4); Monocytes # 0.8 K/mcL (0.0-1.3); Monocytes % 13.8 %; Platelet Count 179 K/mcL (140-400); Red Blood Count 2.61 M/mcL (3.82-4.97); Red Cell Distribution Width 13.4 % (11.5-14.5); Segmented Neutrophils % 52.8 %; White Blood Count 5.6 K/mcL (4.3-11.1)
[2019-04-07 04:59] LABS: Alanine Aminotransferase 81 Units/L (7-52); Albumin 2.6 g/dL (3.5-5.7); Albumin/Globulin Ratio 1.2 (1.1-2.2); Alkaline Phosphatase 195 Units/L (34-104); Aspartate Amino Transferase 40 Units/L (13-39); BUN/Creatinine Ratio 29 (6-26); Bilirubin,Total 0.4 mg/dL (0.3-1.0); Blood Urea Nitrogen 17 mg/dL (6-20); Calcium 7.7 mg/dL (8.6-10.3); Carbon Dioxide 21 mEq/L (23-29); Chloride 109 mEq/L (98-107); Globulin 2.1 g/dL (2.4-3.5); Glucose 220 mg/dL (70-105); Osmolality,Calculated 300 (280-300); Potassium 4.2 mEq/L (3.5-5.1); Sodium 141 mEq/L (136-145); Total Protein 4.7 g/dL (6.4-8.9); eGFR For African Americans > 60 (> 60); eGFR For Non-African Americans > 60 (> 60)
[2019-04-07] MEDS: *HR* Heparin 5,000 UNIT/ML VIAL SQ SCH ×2 (05:48→18:06)
[2019-04-07] MEDS: Aspirin 81 MG TAB.CHEW PO SCH (08:48)
[2019-04-07] MEDS: Nicotine 21 MG PATCH.TD24 TD SCH (08:49)
[2019-04-07] MEDS: Insulin LISPRO 300 UNITS/3 ML VIAL SQ SCH ×4 (08:49→20:46)
[2019-04-07] MEDS: Pantoprazole 40 MG VIAL IVP SCH (09:00)
[2019-04-07] MEDS ORDERED: NON-FORMULARY MEDICATION 1 EACH EACH (Insulin Glargine,Hum.Rec.Anlog [Basaglar Kwikpen U-1 SQ SCH (10:05)
[2019-04-07] MEDS ORDERED: Insulin DETEMIR 100 UNIT/ML X5UNITS SQ SCH (10:30)
[2019-04-07 14:38] LABS: Hematocrit 28.4 % (35.3-44.9); Hemoglobin 9.5 g/dL (11.5-15.4)
[2019-04-08 05:23] LABS: Hematocrit 28.1 % (35.3-44.9); Hemoglobin 9.2 g/dL (11.5-15.4); Mean Corpuscular HGB Conc 32.7 g/dL (31.6-35.5); Mean Corpuscular Hemoglobin 32.7 pg (28.0-33.3); Mean Platelet Volume 9.6 fL (9.4-12.4); Platelet Count 280 K/mcL (140-400); Red Blood Count 2.81 M/mcL (3.82-4.97); Red Cell Distribution Width 13.4 % (11.5-14.5); White Blood Count 5.1 K/mcL (4.3-11.1)
[2019-04-08 05:29] LABS: VBG Ionized Calcium 1.12 mmol/L (1.15-1.35)
[2019-04-08] MEDS: *HR* Heparin 5,000 UNIT/ML VIAL SQ SCH ×2 (06:08→17:29)
[2019-04-08 06:10] LABS: Magnesium 1.9 mg/dL (1.6-2.6); Phosphorous 2.3 mg/dL (2.7-4.5)
[2019-04-08 06:11] LABS: BUN/Creatinine Ratio 35 (6-26); Blood Urea Nitrogen 16 mg/dL (6-20); Calcium 7.6 mg/dL (8.6-10.3); Carbon Dioxide 25 mEq/L (23-29); Chloride 109 mEq/L (98-107); Glucose 65 mg/dL (70-105); Osmolality,Calculated 291 (280-300); Potassium 3.8 mEq/L (3.5-5.1); Sodium 141 mEq/L (136-145); eGFR For African Americans > 60 (> 60); eGFR For Non-African Americans > 60 (> 60)
[2019-04-08] MEDS: Potassium Phosphate 44 MEQ in 0.9 % Sodium Chloride 250 ML IVPB PRN (06:42)
[2019-04-08] MEDS: *HR* Dextrose 50 % in Water (Syg) 50 ML SYRINGE IVP PRN (07:12)
[2019-04-08 07:24] LABS: Alanine Aminotransferase 70 Units/L (7-52); Albumin 2.6 g/dL (3.5-5.7); Albumin/Globulin Ratio 1.2 (1.1-2.2); Alkaline Phosphatase 179 Units/L (34-104); Aspartate Amino Transferase 34 Units/L (13-39); Bilirubin,Direct 0.1 mg/dL (0.0-0.2); Bilirubin,Indirect 0.2 mg/dL (0.0-1.0); Bilirubin,Total 0.3 mg/dL (0.3-1.0); Globulin 2.2 g/dL (2.4-3.5); Total Protein 4.8 g/dL (6.4-8.9)
[2019-04-08] MEDS: Insulin LISPRO 300 UNITS/3 ML VIAL SQ SCH ×4 (07:41→22:11)
[2019-04-08] MEDS ORDERED: Furosemide 20 MG/2 ML VIAL IVP ONE (08:19)
[2019-04-08] MEDS: Nicotine 21 MG PATCH.TD24 TD SCH (09:14)
[2019-04-08] MEDS: Aspirin 81 MG TAB.CHEW PO SCH (09:15)
[2019-04-08] MEDS ORDERED: *HR* Dextrose 50 % in Water (Syg) 50 ML SYRINGE IVP PRN (12:41)
[2019-04-08] MEDS ORDERED: Dextrose Gel 15 GM/37.5 ML TUBE PO PRN ×2 (12:41)
[2019-04-08] MEDS ORDERED: D5% in Water 1,000 ML IVC PRN (12:41)
[2019-04-08] MEDS ORDERED: Calcium Gluconate 1gm/50mL 1 GM/50 ML BAG IVPB PRN (12:41)
[2019-04-09] MEDS: *HR* HYDROcodone/Acet 5/325 mg TABLET PO PRN (04:12)
[2019-04-09 04:43] LABS: Hematocrit 27.6 % (35.3-44.9); Hemoglobin 9.2 g/dL (11.5-15.4); Mean Corpuscular HGB Conc 33.3 g/dL (31.6-35.5); Mean Corpuscular Hemoglobin 32.3 pg (28.0-33.3); Mean Corpuscular Volume 96.8 fL (83.0-100.0); Mean Platelet Volume 9.9 fL (9.4-12.4); Platelet Count 348 K/mcL (140-400); Red Blood Count 2.85 M/mcL (3.82-4.97); Red Cell Distribution Width 13.4 % (11.5-14.5); White Blood Count 6.2 K/mcL (4.3-11.1)
[2019-04-09 05:08] LABS: BUN/Creatinine Ratio 27 (6-26); Blood Urea Nitrogen 17 mg/dL (6-20); Calcium 7.7 mg/dL (8.6-10.3); Carbon Dioxide 16 mEq/L (23-29); Chloride 100 mEq/L (98-107); Glucose 316 mg/dL (70-105); Osmolality,Calculated 294 (280-300); Potassium 4.9 mEq/L (3.5-5.1); Sodium 135 mEq/L (136-145); eGFR For African Americans > 60 (> 60); eGFR For Non-African Americans > 60 (> 60)
[2019-04-09 05:09] LABS: Lymphocytes # 1.1 K/mcL (0.6-4.6); Neutrophils # 4.5 K/mcL (1.6-8.9); Platelet Estimate Normal (Normal)
[2019-04-09] MEDS: *HR* Heparin 5,000 UNIT/ML VIAL SQ SCH ×2 (06:18→17:00)
[2019-04-09] MEDS: Insulin LISPRO 300 UNITS/3 ML VIAL SQ SCH ×4 (07:32→21:07)
[2019-04-09] MEDS: Nicotine 21 MG PATCH.TD24 TD SCH (07:32)
[2019-04-09] MEDS: Aspirin 81 MG TAB.CHEW PO SCH (07:34)
[2019-04-09] MEDS ORDERED: Insulin DETEMIR 100 UNIT/ML X5UNITS SQ SCH ×2 (09:00)
[2019-04-10 04:18] LABS: Eosinophils # 0.2 K/mcL (0.0-0.6); Hematocrit 27.8 % (35.3-44.9); Mean Corpuscular HGB Conc 32.4 g/dL (31.6-35.5); Mean Corpuscular Volume 98.9 fL (83.0-100.0); Mean Platelet Volume 9.4 fL (9.4-12.4); Platelet Count 402 K/mcL (140-400); Red Blood Count 2.81 M/mcL (3.82-4.97); Red Cell Distribution Width 13.7 % (11.5-14.5); White Blood Count 7.8 K/mcL (4.3-11.1)
[2019-04-10 04:34] LABS: Lymphocytes # 1.7 K/mcL (0.6-4.6); Monocytes # 0.3 K/mcL (0.0-1.3); Neutrophils # 5.6 K/mcL (1.6-8.9)
[2019-04-10] MEDS: *HR* Heparin 5,000 UNIT/ML VIAL SQ SCH ×2 (05:31→16:20)
[2019-04-10 06:18] LABS: Alanine Aminotransferase 62 Units/L (7-52); Albumin 2.5 g/dL (3.5-5.7); Albumin/Globulin Ratio 1.1 (1.1-2.2); Alkaline Phosphatase 265 Units/L (34-104); Aspartate Amino Transferase 104 Units/L (13-39); BUN/Creatinine Ratio 29 (6-26); Bilirubin,Total 0.3 mg/dL (0.3-1.0); Blood Urea Nitrogen 18 mg/dL (6-20); Calcium 7.6 mg/dL (8.6-10.3); Carbon Dioxide 21 mEq/L (23-29); Chloride 100 mEq/L (98-107); Globulin 2.3 g/dL (2.4-3.5); Glucose 418 mg/dL (70-105); Osmolality,Calculated 302 (280-300); Potassium 4.9 mEq/L (3.5-5.1); Sodium 136 mEq/L (136-145); Total Protein 4.8 g/dL (6.4-8.9); eGFR For African Americans > 60 (> 60); eGFR For Non-African Americans > 60 (> 60)
[2019-04-10] MEDS: Nicotine 21 MG PATCH.TD24 TD SCH (07:38)
[2019-04-10] MEDS: Insulin LISPRO 300 UNITS/3 ML VIAL SQ SCH ×3 (07:39→16:21)
[2019-04-10] MEDS: Aspirin 81 MG TAB.CHEW PO SCH (07:39)
[2019-04-10] MEDS: Insulin DETEMIR 100 UNIT/ML X5UNITS SQ SCH (07:39)
[2019-04-10] MEDS ORDERED: Insulin LISPRO 300 UNITS/3 ML VIAL SQ SCH (09:18)
[2019-04-10] MEDS ORDERED: Furosemide 20 MG/2 ML VIAL IVP ONE (10:14)
[2019-04-10] MEDS: *HR* HYDROcodone/Acet 5/325 mg TABLET PO PRN (16:20)
[2019-04-10] MEDS: Furosemide 20 MG/2 ML VIAL IVP SCH (21:07)
[2019-04-11] MEDS: Ibuprofen 600 MG TABLET PO PRN ×2 (05:25→11:29)
[2019-04-11] MEDS: *HR* Heparin 5,000 UNIT/ML VIAL SQ SCH ×2 (05:26→17:47)
[2019-04-11] MEDS: Aspirin 81 MG TAB.CHEW PO SCH (08:25)
[2019-04-11] MEDS: Nicotine 21 MG PATCH.TD24 TD SCH (08:26)
[2019-04-11] MEDS: Furosemide 20 MG/2 ML VIAL IVP SCH ×2 (08:26→21:05)
[2019-04-11] MEDS: Insulin LISPRO 300 UNITS/3 ML VIAL SQ SCH ×5 (08:27→16:48)
[2019-04-11] MEDS: Insulin DETEMIR 100 UNIT/ML X5UNITS SQ SCH (10:00)
[2019-04-11] MEDS ORDERED: Insulin LISPRO 300 UNITS/3 ML VIAL SQ SCH (10:53)
[2019-04-11 14:38] LABS: Basophils # 0.1 K/mcL (0.0-0.2); Basophils % 0.4 %; Eosinophils # 0.1 K/mcL (0.0-0.6); Hematocrit 27.5 % (35.3-44.9); Hemoglobin 9.1 g/dL (11.5-15.4); Immature Granulocytes % 2.6 % (0-4); Lymphocytes # 2.6 K/mcL (0.6-4.6); Lymphocytes % 22.6 %; Mean Corpuscular HGB Conc 33.1 g/dL (31.6-35.5); Mean Corpuscular Hemoglobin 32.9 pg (28.0-33.3); Mean Corpuscular Volume 99.3 fL (83.0-100.0); Mean Platelet Volume 8.9 fL (9.4-12.4); Monocytes # 0.8 K/mcL (0.0-1.3); Monocytes % 6.9 %; Neutrophils # 7.6 K/mcL (1.6-8.9); Platelet Count 490 K/mcL (140-400); Red Blood Count 2.77 M/mcL (3.82-4.97); Red Cell Distribution Width 13.3 % (11.5-14.5); Segmented Neutrophils % 66.5 %; White Blood Count 11.4 K/mcL (4.3-11.1)
[2019-04-11 14:54] LABS: Alanine Aminotransferase 46 Units/L (7-52); Albumin 2.7 g/dL (3.5-5.7); Albumin/Globulin Ratio 1.3 (1.1-2.2); Alkaline Phosphatase 213 Units/L (34-104); Aspartate Amino Transferase 23 Units/L (13-39); BUN/Creatinine Ratio 24 (6-26); Bilirubin,Total 0.2 mg/dL (0.3-1.0); Blood Urea Nitrogen 18 mg/dL (6-20); Calcium 7.6 mg/dL (8.6-10.3); Carbon Dioxide 29 mEq/L (23-29); Chloride 101 mEq/L (98-107); Globulin 2.1 g/dL (2.4-3.5); Glucose 129 mg/dL (70-105); Osmolality,Calculated 286 (280-300); Potassium 3.7 mEq/L (3.5-5.1); Sodium 136 mEq/L (136-145); Total Protein 4.8 g/dL (6.4-8.9); eGFR For African Americans > 60 (> 60); eGFR For Non-African Americans > 60 (> 60)
[2019-04-11] MEDS ORDERED: SODIUM CHLORIDE/NAHCO3/KCL/PEG 4,000 ML SOLN.RECON PO ONE (17:00)
[2019-04-11] MEDS ORDERED: Insulin DETEMIR 100 UNIT/ML X5UNITS SQ SCH (21:00)
[2019-04-12] MEDS: *HR* Heparin 5,000 UNIT/ML VIAL SQ SCH (06:08)
[2019-04-12] MEDS ORDERED: *HR* Promethazine 25 MG/ML VIAL IVP ONE (06:16)
[2019-04-12] MEDS ORDERED: Acetaminophen IV 1,000 MG/100 ML INFUS..BTL IVPB ONE (06:23)
[2019-04-12 08:14] VITALS: BP 130/68
[2019-04-12] MEDS ORDERED: 0.9 % Sodium Chloride 500 ML IVC SCH (08:30)
[2019-04-12] MEDS ORDERED: Insulin Human Regular 10 UNIT in 0.9 % Sodium Chloride 10 ML IV ONE (08:34)
[2019-04-12] MEDS ORDERED: *HR* Etomidate 40 MG/20 ML VIAL IVP ONE (08:45)
[2019-04-12] MEDS ORDERED: Propofol 500 MG/50 ML INFUS..BTL ONE (08:45)
[2019-04-12] MEDS: Insulin LISPRO 300 UNITS/3 ML VIAL SQ SCH ×4 (09:58→13:04)
[2019-04-12] MEDS: Furosemide 20 MG/2 ML VIAL IVP SCH (10:01)
[2019-04-12] MEDS: Aspirin 81 MG TAB.CHEW PO SCH (10:01)
[2019-04-12] MEDS: Nicotine 21 MG PATCH.TD24 TD SCH (10:01)
[2019-04-12] MEDS ORDERED: Apixaban 5 MG TABLET PO SCH (15:07)
[2019-04-12] MEDS ORDERED: FLU Vac QV 19-20 (6Month+)/PF 0.5 ML SYRINGE IM ONE (15:49)
== END 2019-04-12 17:47 | disposition home health service (06) | DRG 174 ==
LOC: SUATTDRO 08:20 → ICNU 08:20 → 2NNU 04-08 23:08 → 2NENU 04-11 18:59
PROVIDERS: ADMIT Internal Medicine; ATTEND Internal Medicine

== ENCOUNTER 2019-07-26 21:08 | Observation (INO) ==
[2019-07-27] MEDS ORDERED: Morphine Sulfate 2 MG/ML SYRINGE IVP ONE ×2 (00:17→06:14)
[2019-07-27] MEDS ORDERED: Naloxone 0.4 MG/ML INJ IVP PRN ×2 (02:01→11:19)
[2019-07-27 02:08] LABS: Activated Partial Thrombo Time 53.6 Seconds (26.0-36.0)
[2019-07-27 02:14] LABS: Basophils # 0.1 K/mcL (0.0-0.2); Basophils % 0.5 %; Eosinophils # 0.1 K/mcL (0.0-0.6); Eosinophils % 1.2 %; Hematocrit 38.4 % (35.3-44.9); Hemoglobin 12.5 g/dL (11.5-15.4); Immature Granulocytes % 0.6 % (0-4); Lymphocytes # 3.2 K/mcL (0.6-4.6); Lymphocytes % 29.5 %; Mean Corpuscular HGB Conc 32.6 g/dL (31.6-35.5); Mean Corpuscular Hemoglobin 30.7 pg (28.0-33.3); Mean Corpuscular Volume 94.3 fL (83.0-100.0); Mean Platelet Volume 9.7 fL (9.4-12.4); Monocytes # 0.5 K/mcL (0.0-1.3); Monocytes % 4.3 %; Platelet Count 279 K/mcL (140-400); Red Blood Count 4.07 M/mcL (3.82-4.97); Red Cell Distribution Width 12.9 % (11.5-14.5); Segmented Neutrophils % 63.9 %; White Blood Count 10.9 K/mcL (4.3-11.1)
[2019-07-27] MEDS ORDERED: *HR* Heparin 5,000 UNIT/ML VIAL IVP ONE (02:20)
[2019-07-27] MEDS ORDERED: *HR* Heparin 5,000 UNIT/ML VIAL IVP PRN ×3 (02:20→02:27)
[2019-07-27] MEDS ORDERED: Heparin 25,000 UNIT/250 ML D5W 25,000 UNIT/250 ML IV.SOLN IVC SCH (02:30)
[2019-07-27] MEDS: Heparin 25,000 UNIT/250 ML D5W 25,000 UNIT/250 ML IV.SOLN IVC SCH (02:32)
[2019-07-27 02:41] LABS: BUN/Creatinine Ratio 39 (6-26); Blood Urea Nitrogen 36 mg/dL (6-20); Calcium 9.4 mg/dL (8.6-10.3); Carbon Dioxide 10 mEq/L (23-29); Chloride 100 mEq/L (98-107); Glucose 383 mg/dL (70-105); Osmolality,Calculated 300 (280-300); Potassium 4.6 mEq/L (3.5-5.1); Sodium 133 mEq/L (136-145); Troponin I 0.05 ng/mL (< 0.04); eGFR For African Americans > 60 (> 60); eGFR For Non-African Americans > 60 (> 60)
[2019-07-27 02:43] LABS: INR 1.1; Prothrombin Time 12.2 Seconds (9.4-12.1)
[2019-07-27 02:47] LABS: Heparin anti-factor XA UFH > 2.00 IU/mL (0.30-0.70)
[2019-07-27] MEDS: *HR* Heparin 5,000 UNIT/ML VIAL IVP PRN ×2 (02:47→17:57)
[2019-07-27 02:58] LABS: Hematocrit 38.8 % (35.3-44.9); Hemoglobin 12.4 g/dL (11.5-15.4); Mean Corpuscular Volume 93.9 fL (83.0-100.0); Mean Platelet Volume 9.8 fL (9.4-12.4); Platelet Count 284 K/mcL (140-400); Red Blood Count 4.13 M/mcL (3.82-4.97); Red Cell Distribution Width 12.9 % (11.5-14.5)
[2019-07-27] MEDS ORDERED: Insulin LISPRO 300 UNITS/3 ML VIAL SQ ONE (03:14)
[2019-07-27] MEDS ORDERED: *HR* Dextrose 50 % in Water (Syg) 50 ML SYRINGE IVP PRN ×3 (04:02→11:16)
[2019-07-27] MEDS ORDERED: Insulin Regular, Human 100 UNIT/ML IV PRN (04:02)
[2019-07-27] MEDS ORDERED: Insulin Human Regular 100 UNIT in 0.9 % Sodium Chloride 100 ML IVC SCH ×2 (04:15→08:15)
[2019-07-27] MEDS ORDERED: 0.9 % Sodium Chloride 1,000 ML IVC SCH (04:15)
[2019-07-27 05:25] LABS: ABG Base Excess -12 mEq/L (-2 to 3); ABG HCO3 13 mEq/L (21-27); ABG Oxygen Saturation 99 % (95-98); ABG PCO2 25 mmHg (35-45); ABG PH 7.32 pH Units (7.32-7.45); ABG PO2 145 mmHg (85-104); ABG TCO2 14 mEq/L (20-26)
[2019-07-27] MEDS ORDERED: *HR* Promethazine 25 MG/ML VIAL IVP ONE (06:10)
[2019-07-27 06:53] LABS: BUN/Creatinine Ratio 43 (6-26); Blood Urea Nitrogen 38 mg/dL (6-20); Calcium 9.3 mg/dL (8.6-10.3); Carbon Dioxide 15 mEq/L (23-29); Chloride 102 mEq/L (98-107); Glucose 335 mg/dL (70-105); Osmolality,Calculated 296 (280-300); Potassium 3.9 mEq/L (3.5-5.1); Sodium 132 mEq/L (136-145); eGFR For African Americans > 60 (> 60); eGFR For Non-African Americans > 60 (> 60)
[2019-07-27] MEDS ORDERED: Insulin LISPRO 300 UNITS/3 ML VIAL SQ SCH (08:00)
[2019-07-27] MEDS ORDERED: D5% in 0.45% NACL 1,000 ML IVC PRN (08:06)
[2019-07-27] MEDS ORDERED: D5% in 0.45% NACL w KCl 20 MEQ/1,000 ML MLS IVC PRN (08:06)
[2019-07-27] MEDS ORDERED: 0.45 % Sodium Chloride w/KCl 20 MEQ/1,000 ML MLS IVC SCH (08:15)
[2019-07-27] MEDS: Aspirin 81 MG TAB.CHEW PO SCH (08:29)
[2019-07-27] MEDS: Nicotine 21 MG PATCH.TD24 TD SCH (08:30)
[2019-07-27] MEDS ORDERED: lisinopriL 5 MG TABLET PO SCH (09:00)
[2019-07-27 10:33] LABS: BUN/Creatinine Ratio 45 (6-26); Blood Urea Nitrogen 35 mg/dL (6-20); Calcium 8.8 mg/dL (8.6-10.3); Carbon Dioxide 21 mEq/L (23-29); Chloride 105 mEq/L (98-107); Glucose 144 mg/dL (70-105); Osmolality,Calculated 285 (280-300); Potassium 4.1 mEq/L (3.5-5.1); Sodium 132 mEq/L (136-145); eGFR For African Americans > 60 (> 60); eGFR For Non-African Americans > 60 (> 60)
[2019-07-27] MEDS ORDERED: D5% in Water 1,000 ML IVC PRN (11:16)
[2019-07-27] MEDS ORDERED: Dextrose Gel 15 GM/37.5 ML TUBE PO PRN ×2 (11:16)
[2019-07-27] MEDS ORDERED: Acetaminophen 325 MG TABLET PO PRN (11:19)
[2019-07-27] MEDS: Insulin LISPRO 300 UNITS/3 ML VIAL SQ SCH ×4 (11:42→16:31)
[2019-07-27] MEDS: *HR* HYDROcodone/Acet 5/325 mg TABLET PO PRN ×2 (11:44→21:02)
[2019-07-27] MEDS: Insulin DETEMIR 100 UNIT/ML X5UNITS SQ SCH (12:16)
[2019-07-27 14:32] LABS: BUN/Creatinine Ratio 33 (6-26); Blood Urea Nitrogen 32 mg/dL (6-20); Calcium 8.6 mg/dL (8.6-10.3); Carbon Dioxide 22 mEq/L (23-29); Chloride 103 mEq/L (98-107); Glucose 142 mg/dL (70-105); Osmolality,Calculated 281 (280-300); Potassium 4.4 mEq/L (3.5-5.1); Sodium 131 mEq/L (136-145); eGFR For African Americans > 60 (> 60); eGFR For Non-African Americans > 60 (> 60)
[2019-07-27 18:25] LABS: BUN/Creatinine Ratio 36 (6-26); Blood Urea Nitrogen 33 mg/dL (6-20); Calcium 8.4 mg/dL (8.6-10.3); Carbon Dioxide 21 mEq/L (23-29); Chloride 107 mEq/L (98-107); Glucose 155 mg/dL (70-105); Osmolality,Calculated 284 (280-300); Potassium 3.8 mEq/L (3.5-5.1); Sodium 132 mEq/L (136-145); eGFR For African Americans > 60 (> 60); eGFR For Non-African Americans > 60 (> 60)
[2019-07-27] MEDS ORDERED: Insulin DETEMIR 100 UNIT/ML X5UNITS SQ SCH (21:00)
[2019-07-28 00:48] LABS: BUN/Creatinine Ratio 44 (6-26); Blood Urea Nitrogen 30 mg/dL (6-20); Calcium 8.8 mg/dL (8.6-10.3); Carbon Dioxide 22 mEq/L (23-29); Chloride 105 mEq/L (98-107); Glucose 58 mg/dL (70-105); Osmolality,Calculated 280 (280-300); Potassium 3.8 mEq/L (3.5-5.1); Sodium 133 mEq/L (136-145); eGFR For African Americans > 60 (> 60); eGFR For Non-African Americans > 60 (> 60)
[2019-07-28 03:01] LABS: BUN/Creatinine Ratio 51 (6-26); Blood Urea Nitrogen 28 mg/dL (6-20); Calcium 8.7 mg/dL (8.6-10.3); Carbon Dioxide 22 mEq/L (23-29); Chloride 104 mEq/L (98-107); Glucose 71 mg/dL (70-105); Osmolality,Calculated 284 (280-300); Potassium 3.2 mEq/L (3.5-5.1); Sodium 135 mEq/L (136-145); eGFR For African Americans > 60 (> 60); eGFR For Non-African Americans > 60 (> 60)
[2019-07-28 06:36] LABS: Basophils % 0.4 %; Eosinophils # 0.1 K/mcL (0.0-0.6); Eosinophils % 1.4 %; Hemoglobin 13.1 g/dL (11.5-15.4); Immature Granulocytes % 0.4 % (0-4); Lymphocytes # 2.7 K/mcL (0.6-4.6); Lymphocytes % 38.5 %; Mean Corpuscular HGB Conc 32.8 g/dL (31.6-35.5); Mean Corpuscular Hemoglobin 30.3 pg (28.0-33.3); Mean Corpuscular Volume 92.6 fL (83.0-100.0); Mean Platelet Volume 9.4 fL (9.4-12.4); Monocytes # 0.3 K/mcL (0.0-1.3); Monocytes % 4.9 %; Neutrophils # 3.8 K/mcL (1.6-8.9); Platelet Count 253 K/mcL (140-400); Red Blood Count 4.32 M/mcL (3.82-4.97); Segmented Neutrophils % 54.4 %; White Blood Count 6.9 K/mcL (4.3-11.1)
[2019-07-28] MEDS: *HR* Heparin 5,000 UNIT/ML VIAL IVP PRN (06:50)
[2019-07-28] MEDS: *HR* HYDROcodone/Acet 5/325 mg TABLET PO PRN (06:53)
[2019-07-28 06:57] LABS: BUN/Creatinine Ratio 38 (6-26); Blood Urea Nitrogen 25 mg/dL (6-20); Calcium 8.8 mg/dL (8.6-10.3); Carbon Dioxide 23 mEq/L (23-29); Chloride 102 mEq/L (98-107); Glucose 169 mg/dL (70-105); Osmolality,Calculated 284 (280-300); Potassium 3.8 mEq/L (3.5-5.1); Sodium 133 mEq/L (136-145); eGFR For African Americans > 60 (> 60); eGFR For Non-African Americans > 60 (> 60)
[2019-07-28] MEDS ORDERED: Nitroglycerin 0.4 MG TAB.SUBL SL PRN (09:28)
[2019-07-28] MEDS: Nicotine 21 MG PATCH.TD24 TD SCH (09:37)
[2019-07-28] MEDS: Aspirin 81 MG TAB.CHEW PO SCH (09:37)
[2019-07-28] MEDS: Insulin DETEMIR 100 UNIT/ML X5UNITS SQ SCH (09:39)
[2019-07-28] MEDS: Insulin LISPRO 300 UNITS/3 ML VIAL SQ SCH ×4 (09:40→11:17)
[2019-07-28] MEDS ORDERED: Apixaban 5 MG TABLET PO SCH (09:45)
[2019-07-28] MEDS: Heparin 25,000 UNIT/250 ML D5W 25,000 UNIT/250 ML IV.SOLN IVC SCH (10:05)
[2019-07-28 11:09] VITALS: BP 143/84
== END 2019-07-28 16:21 | disposition home or self-care (01) ==
LOC: 3BNU → SUATTDRO 22:44 → 3NENU 07-27 05:09 → 2ANU 07-27 13:26
PROVIDERS: ADMIT Internal Medicine; ATTEND Internal Medicine

== ENCOUNTER 2019-08-05 16:16 | Observation (INO) ==
[2019-08-05] MEDS ORDERED: Naloxone 0.4 MG/ML INJ IVP PRN (19:16)
[2019-08-05] MEDS ORDERED: Isovue-370 500 ML BOTTLE IVP ONE (19:24)
[2019-08-05] MEDS ORDERED: D5% in Water 1,000 ML IVC PRN (19:29)
[2019-08-05] MEDS ORDERED: Dextrose Gel 15 GM/37.5 ML TUBE PO PRN ×2 (19:29)
[2019-08-05] MEDS ORDERED: *HR* Dextrose 50 % in Water (Syg) 50 ML SYRINGE IVP PRN (19:29)
[2019-08-05 20:31] LABS: Alanine Aminotransferase 17 Units/L (7-52); Albumin 3.7 g/dL (3.5-5.7); Albumin/Globulin Ratio 1.9 (1.1-2.2); Alkaline Phosphatase 325 Units/L (34-104); Aspartate Amino Transferase 24 Units/L (13-39); BUN/Creatinine Ratio 38 (6-26); Bilirubin,Total 0.6 mg/dL (0.3-1.0); Blood Urea Nitrogen 24 mg/dL (6-20); Calcium 8.3 mg/dL (8.6-10.3); Carbon Dioxide 22 mEq/L (23-29); Chloride 107 mEq/L (98-107); Gamma Glutamyl Transpeptidase 21 Units/L (7-64); Glucose 96 mg/dL (70-105); Osmolality,Calculated 286 (280-300); Potassium 3.9 mEq/L (3.5-5.1); Sodium 136 mEq/L (136-145); Total Protein 5.7 g/dL (6.4-8.9); eGFR For African Americans > 60 (> 60); eGFR For Non-African Americans > 60 (> 60)
[2019-08-05 20:32] LABS: Troponin I 0.03 ng/mL (< 0.04)
[2019-08-05] MEDS: Apixaban 5 MG TABLET PO SCH (21:03)
[2019-08-05] MEDS: Insulin LISPRO 300 UNITS/3 ML VIAL SQ SCH (21:04)
[2019-08-05] MEDS: Insulin DETEMIR 100 UNIT/ML X5UNITS SQ SCH (21:04)
[2019-08-05] MEDS: *HR* HYDROcodone/Acet 5/325 mg TABLET PO PRN (22:15)
[2019-08-06] MEDS: Nicotine 14 MG PATCH.TD24 TD SCH ×2 (00:12→20:23)
[2019-08-06 02:19] LABS: Alanine Aminotransferase 14 Units/L (7-52); Albumin 3.5 g/dL (3.5-5.7); Albumin/Globulin Ratio 1.9 (1.1-2.2); Alkaline Phosphatase 244 Units/L (34-104); Aspartate Amino Transferase 18 Units/L (13-39); BUN/Creatinine Ratio 34 (6-26); Bilirubin,Total 0.4 mg/dL (0.3-1.0); Blood Urea Nitrogen 23 mg/dL (6-20); Calcium 7.8 mg/dL (8.6-10.3); Carbon Dioxide 20 mEq/L (23-29); Chloride 103 mEq/L (98-107); Globulin 1.8 g/dL (2.4-3.5); Glucose 381 mg/dL (70-105); Osmolality,Calculated 291 (280-300); Sodium 131 mEq/L (136-145); Total Protein 5.3 g/dL (6.4-8.9); eGFR For African Americans > 60 (> 60); eGFR For Non-African Americans > 60 (> 60)
[2019-08-06 02:29] LABS: Hematocrit 33.6 % (35.3-44.9); Hemoglobin 11.1 g/dL (11.5-15.4); Mean Corpuscular Hemoglobin 30.6 pg (28.0-33.3); Mean Corpuscular Volume 92.6 fL (83.0-100.0); Mean Platelet Volume 10.1 fL (9.4-12.4); Platelet Count 191 K/mcL (140-400); Red Blood Count 3.63 M/mcL (3.82-4.97); Red Cell Distribution Width 13.8 % (11.5-14.5); White Blood Count 4.7 K/mcL (4.3-11.1)
[2019-08-06] MEDS: *HR* HYDROcodone/Acet 5/325 mg TABLET PO PRN ×3 (04:15→20:35)
[2019-08-06] MEDS ORDERED: lisinopriL 5 MG TABLET PO SCH (09:00)
[2019-08-06] MEDS ORDERED: GI Cocktail 40 ML EACH PO ONE (10:07)
[2019-08-06] MEDS: Apixaban 5 MG TABLET PO SCH ×2 (10:11→20:23)
[2019-08-06] MEDS: Insulin LISPRO 300 UNITS/3 ML VIAL SQ SCH ×4 (10:12→20:24)
[2019-08-06] MEDS: MetroNIDAZOLE 500 MG/100 ML 500 MG/100 ML BAG IVPB SCH ×2 (10:12→17:17)
[2019-08-06] MEDS: Metoprolol XL (24 HR) Succ 25 MG TAB.ER.24H PO SCH (20:22)
[2019-08-06] MEDS: Insulin DETEMIR 100 UNIT/ML X5UNITS SQ SCH (20:24)
[2019-08-07 02:32] LABS: Hematocrit 30.8 % (35.3-44.9); Hemoglobin 10.3 g/dL (11.5-15.4); Mean Corpuscular HGB Conc 33.4 g/dL (31.6-35.5); Mean Corpuscular Hemoglobin 31.1 pg (28.0-33.3); Mean Corpuscular Volume 93.1 fL (83.0-100.0); Platelet Count 259 K/mcL (140-400); Red Blood Count 3.31 M/mcL (3.82-4.97); Red Cell Distribution Width 13.9 % (11.5-14.5)
[2019-08-07 02:45] LABS: White Blood Count 8.2 K/mcL (4.3-11.1)
[2019-08-07 02:54] LABS: BUN/Creatinine Ratio 35 (6-26); Blood Urea Nitrogen 19 mg/dL (6-20); Calcium 8.3 mg/dL (8.6-10.3); Carbon Dioxide 24 mEq/L (23-29); Chloride 104 mEq/L (98-107); Glucose 50 mg/dL (70-105); Osmolality,Calculated 282 (280-300); Potassium 3.5 mEq/L (3.5-5.1); Sodium 136 mEq/L (136-145); eGFR For African Americans > 60 (> 60); eGFR For Non-African Americans > 60 (> 60)
[2019-08-07 03:39] LABS: Eosinophils # 0.3 K/mcL (0.0-0.6); Lymphocytes # 1.6 K/mcL (0.6-4.6); Monocytes # 0.3 K/mcL (0.0-1.3); Neutrophils # 5.9 K/mcL (1.6-8.9)
[2019-08-07 03:40] LABS: Platelet Estimate Normal (Normal)
[2019-08-07] MEDS: *HR* HYDROcodone/Acet 5/325 mg TABLET PO PRN ×3 (05:24→20:33)
[2019-08-07] MEDS: Apixaban 5 MG TABLET PO SCH ×2 (08:18→20:33)
[2019-08-07] MEDS: MetroNIDAZOLE 500 MG/100 ML 500 MG/100 ML BAG IVPB SCH ×4 (08:19→23:03)
[2019-08-07] MEDS: Insulin LISPRO 300 UNITS/3 ML VIAL SQ SCH ×4 (08:19→20:34)
[2019-08-07] MEDS: Nitroglycerin 0.4 MG TAB.SUBL SL PRN ×2 (08:26→08:31)
[2019-08-07 11:05] LABS: Amphetamine Screen,Urine Negative ng/mL (Cutoff=1000); Barbiturate Screen,Urine Negative ng/mL (Cutoff=200); Benzodiazepines Screen,Urine Negative ng/mL (Cutoff=200); Cannabinoid Screen,Urine Negative ng/mL (Cutoff = 50); Cocaine Screen,Urine Negative ng/mL (Cutoff= 300); Phencyclidine Screen,Urine Negative ng/mL (Cutoff=25)
[2019-08-07] MEDS ORDERED: *HR* HYDROcodone/Acet 5/325 mg TABLET PO PRN (13:07)
[2019-08-07] MEDS: Isosorbide MONOnitrate (24 HR) 30 MG TAB.ER.24H PO SCH (13:24)
[2019-08-07 13:29] LABS: Opiate Screen,Urine Positive ng/mL (Cutoff=300)
[2019-08-07] MEDS: Metoprolol XL (24 HR) Succ 25 MG TAB.ER.24H PO SCH (20:33)
[2019-08-07] MEDS: Nicotine 14 MG PATCH.TD24 TD SCH (20:34)
[2019-08-07] MEDS ORDERED: Insulin DETEMIR 100 UNIT/ML X5UNITS SQ SCH (21:00)
[2019-08-08 03:03] LABS: Hematocrit 33.6 % (35.3-44.9); Hemoglobin 10.7 g/dL (11.5-15.4); Mean Corpuscular HGB Conc 31.8 g/dL (31.6-35.5); Mean Corpuscular Hemoglobin 30.1 pg (28.0-33.3); Mean Corpuscular Volume 94.4 fL (83.0-100.0); Mean Platelet Volume 9.8 fL (9.4-12.4); Platelet Count 269 K/mcL (140-400); Red Blood Count 3.56 M/mcL (3.82-4.97); Red Cell Distribution Width 13.5 % (11.5-14.5); White Blood Count 6.4 K/mcL (4.3-11.1)
[2019-08-08 03:18] LABS: BUN/Creatinine Ratio 33 (6-26); Blood Urea Nitrogen 19 mg/dL (6-20); Calcium 8.4 mg/dL (8.6-10.3); Carbon Dioxide 27 mEq/L (23-29); Chloride 99 mEq/L (98-107); Glucose 112 mg/dL (70-105); Osmolality,Calculated 279 (280-300); Potassium 3.7 mEq/L (3.5-5.1); Sodium 133 mEq/L (136-145); eGFR For African Americans > 60 (> 60); eGFR For Non-African Americans > 60 (> 60)
[2019-08-08] MEDS ORDERED: *HR* Promethazine 25 MG/ML VIAL IVP ONE (03:59)
[2019-08-08] MEDS: *HR* HYDROcodone/Acet 5/325 mg TABLET PO PRN ×2 (05:45→11:26)
[2019-08-08] MEDS ORDERED: polyethylene glycoL 3350 17 GM POWD.PACK PO SCH (09:00)
[2019-08-08] MEDS ORDERED: Sennosides/Docusate Sodium TABLET PO SCH (09:00)
[2019-08-08] MEDS: Insulin LISPRO 300 UNITS/3 ML VIAL SQ SCH (09:04)
[2019-08-08] MEDS: Isosorbide MONOnitrate (24 HR) 30 MG TAB.ER.24H PO SCH (11:27)
[2019-08-08] MEDS: Apixaban 5 MG TABLET PO SCH (11:27)
[2019-08-08] MEDS: MetroNIDAZOLE 500 MG/100 ML 500 MG/100 ML BAG IVPB SCH (11:28)
[2019-08-08 12:09] VITALS: BP 164/76
[2019-08-13 16:19] LABS: Alkaline Phosphatase Bone 16 U/L (0-55)
[2019-08-14 07:10] LABS: Alkaline Phosphatase 227 U/L (40-120); Alkaline Phosphatase Other 211 U/L
== END 2019-08-08 13:54 | disposition home or self-care (01) ==
LOC: 2ANU → SUATTDRO 17:24
PROVIDERS: ADMIT Family Medicine; ATTEND Internal Medicine

== ENCOUNTER 2020-04-03 22:53 | Observation (INO) ==
[2020-04-04] MEDS ORDERED: Ringers Solution, Lactated 500 ML IVC ONE (02:57)
[2020-04-04] MEDS ORDERED: Acetaminophen 325 MG TABLET PO PRN (03:56)
[2020-04-04] MEDS ORDERED: Naloxone 0.4 MG/ML INJ IVP PRN (03:56)
[2020-04-04] MEDS ORDERED: Ondansetron ODT 4 MG TAB.RAPDIS SL PRN (03:56)
[2020-04-04] MEDS ORDERED: Perflutren Lipid Microsphere 1.3 ML in 0.9 % Sodium Chloride 8.7 ML IVP PRN (03:59)
[2020-04-04] MEDS ORDERED: Dextrose Gel 15 GM/37.5 ML TUBE PO PRN ×2 (04:27)
[2020-04-04] MEDS ORDERED: *HR* Dextrose 50 % in Water (Vial) 50 ML VIAL IVP PRN (04:27)
[2020-04-04] MEDS ORDERED: D5% in Water 1,000 ML IVC PRN (04:27)
[2020-04-04] MEDS: Insulin LISPRO 300 UNITS/3 ML VIAL SUBQ SCH ×5 (04:35→20:49)
[2020-04-04 04:39] LABS: Basophils % 0.3 %; Eosinophils % 0.1 %; Hematocrit 32.4 % (35.3-44.9); Hemoglobin 10.1 g/dL (11.5-15.4); Immature Granulocytes % 0.8 % (0-4); Lymphocytes # 1.3 K/mcL (0.6-4.6); Lymphocytes % 15.3 %; Mean Corpuscular HGB Conc 31.2 g/dL (31.6-35.5); Mean Corpuscular Hemoglobin 32.4 pg (28.0-33.3); Mean Corpuscular Volume 103.8 fL (83.0-100.0); Mean Platelet Volume 8.8 fL (9.4-12.4); Monocytes # 0.3 K/mcL (0.0-1.3); Monocytes % 3.4 %; Platelet Count 290 K/mcL (140-400); Red Blood Count 3.12 M/mcL (3.82-4.97); Red Cell Distribution Width 12.8 % (11.5-14.5); Segmented Neutrophils % 80.1 %; White Blood Count 8.7 K/mcL (4.3-11.1)
[2020-04-04 04:45] LABS: INR 1.2; Prothrombin Time 13.6 Seconds (9.4-12.1)
[2020-04-04 04:54] LABS: Alanine Aminotransferase 131 Units/L (7-52); Albumin 2.7 g/dL (3.5-5.7); Alkaline Phosphatase 418 Units/L (34-104); Aspartate Amino Transferase 127 Units/L (13-39); BUN/Creatinine Ratio 24 (6-26); Bilirubin,Total 0.3 mg/dL (0.3-1.0); Blood Urea Nitrogen 20 mg/dL (6-20); Calcium 8.1 mg/dL (8.6-10.3); Carbon Dioxide 16 mEq/L (23-29); Chloride 93 mEq/L (98-107); Cholesterol 150 mg/dL (< 200); Globulin 2.8 g/dL (2.4-3.5); Glucose 468 mg/dL (70-105); HDL Cholesterol 50 mg/dL (40-59); LDL Cholesterol,Calculated 48 mg/dL (< 100); Magnesium 1.8 mg/dL (1.6-2.6); Osmolality,Calculated 303 (280-300); Phosphorous 3.3 mg/dL (2.7-4.5); Potassium 4.2 mEq/L (3.5-5.1); Sodium 135 mEq/L (136-145); Total Protein 5.5 g/dL (6.4-8.9); Triglycerides 259 mg/dL (< 150); eGFR For African Americans > 60 (> 60); eGFR For Non-African Americans > 60 (> 60)
[2020-04-04 05:14] LABS: Thyroid Stimulating Hormone 3.197 mcIU/mL (0.340-5.600)
[2020-04-04 08:10] LABS: Estimated Average Glucose 303 mg/dl; Hemoglobin A1C 12.2 %
[2020-04-04] MEDS: Apixaban 5 MG TABLET PO SCH ×2 (09:00→20:45)
[2020-04-04] MEDS: Isosorbide MONOnitrate (24 HR) 30 MG TAB.ER.24H PO SCH (09:00)
[2020-04-04 09:40] LABS: Bilirubin,Urine Negative (Negative); Blood,Urine Trace (Negative); Clarity,Urine Clear (Clear); Color,Urine Colorless (Yellow); Glucose,Urine (UA) >=1000 mg/dL (Normal); Ketones,Urine >150 mg/dL (Negative); Leukocyte Esterase,Urine Negative (Negative); Mucus,Urine Few per lpf (None-Few); Nitrite,Urine Negative (Negative); PH,Urine 5.5 pH Units (5.0-8.0); Protein,Urine Negative (Neg-Trace); Specific Gravity,Urine 1.025 (1.010-1.025); Squamous Epithelial Cell,Urine Few per hpf (None-Few); Urobilinogen,Urine Normal (Normal)
[2020-04-04] MEDS: dexAMETHasone 4 MG TABLET PO SCH (12:30)
[2020-04-04] MEDS: GuaiFENesin/Dextromethorphan TABLET PO SCH ×2 (12:30→20:45)
[2020-04-04] MEDS ORDERED: Insulin DETEMIR 100 UNIT/ML X5UNITS SUBQ SCH ×2 (21:00)
[2020-04-04] MEDS ORDERED: Metoprolol XL (24 HR) Succ 25 MG TAB.ER.24H PO SCH (21:00)
[2020-04-04] MEDS ORDERED: *HR* OxyCODONE Immed Rel 5 MG TABLET PO ONE (21:18)
[2020-04-05] MEDS: Insulin LISPRO 300 UNITS/3 ML VIAL SUBQ SCH ×3 (08:49→16:38)
[2020-04-05] MEDS: GuaiFENesin/Dextromethorphan TABLET PO SCH (08:51)
[2020-04-05] MEDS: Isosorbide MONOnitrate (24 HR) 30 MG TAB.ER.24H PO SCH (08:51)
[2020-04-05] MEDS: Apixaban 5 MG TABLET PO SCH (08:51)
[2020-04-05] MEDS: dexAMETHasone 4 MG TABLET PO SCH (08:52)
[2020-04-05] MEDS ORDERED: Ketorolac 15 MG/ML VIAL IVP ONE (09:49)
[2020-04-05 16:34] VITALS: BP 107/63
== END 2020-04-05 16:00 | disposition home or self-care (01) ==
LOC: 2NENU → SUATTDRO 04-04 02:08 → UNDODISOB 04-05 17:34 → 2NENU 04-05 19:40
PROVIDERS: ADMIT Internal Medicine Nephrology; ATTEND Internal Medicine

== ENCOUNTER 2020-04-05 19:41 | Observation (INO) ==
[2020-04-05] MEDS ORDERED: *HR* Promethazine 25 MG/ML VIAL IM PRN (23:27)
[2020-04-05] MEDS ORDERED: Naloxone 0.4 MG/ML INJ IVP PRN (23:27)
[2020-04-05] MEDS ORDERED: Nitroglycerin 0.4 MG TAB.SUBL SL PRN (23:32)
[2020-04-06] MEDS ORDERED: *HR* Dextrose 50 % in Water (Vial) 50 ML VIAL IVP PRN (00:04)
[2020-04-06] MEDS ORDERED: D5% in Water 1,000 ML IVC PRN (00:04)
[2020-04-06] MEDS ORDERED: Dextrose Gel 15 GM/37.5 ML TUBE PO PRN ×2 (00:04)
[2020-04-06] MEDS: Metoprolol XL (24 HR) Succ 25 MG TAB.ER.24H PO SCH ×2 (02:04→21:16)
[2020-04-06] MEDS: Acetaminophen 325 MG TABLET PO PRN (02:04)
[2020-04-06] MEDS: Apixaban 5 MG TABLET PO SCH ×3 (02:04→21:16)
[2020-04-06] MEDS: GuaiFENesin/Dextromethorphan TABLET PO SCH ×3 (02:07→21:10)
[2020-04-06] MEDS ORDERED: INSULIN ASPART 15 UNIT SQ SCH (08:00)
[2020-04-06] MEDS: Isosorbide MONOnitrate (24 HR) 30 MG TAB.ER.24H PO SCH (08:12)
[2020-04-06] MEDS: Insulin LISPRO 300 UNITS/3 ML VIAL SUBQ SCH ×3 (08:14→18:02)
[2020-04-06] MEDS: Insulin DETEMIR 100 UNIT/ML X5UNITS SUBQ SCH ×2 (08:15→21:16)
[2020-04-06] MEDS: dexAMETHasone 4 MG TABLET PO SCH (08:21)
[2020-04-06] MEDS ORDERED: dexAMETHasone 4 MG TABLET PO SCH (09:00)
[2020-04-06] MEDS ORDERED: Ketorolac 15 MG/ML VIAL IVP ONE (10:37)
[2020-04-06] MEDS ORDERED: Insulin LISPRO 300 UNITS/3 ML VIAL SUBQ SCH (21:00)
[2020-04-07] MEDS: Acetaminophen 325 MG TABLET PO PRN (06:20)
[2020-04-07] MEDS: Insulin LISPRO 300 UNITS/3 ML VIAL SUBQ SCH ×2 (08:06→11:39)
[2020-04-07] MEDS: GuaiFENesin/Dextromethorphan TABLET PO SCH (08:07)
[2020-04-07] MEDS: Apixaban 5 MG TABLET PO SCH (08:07)
[2020-04-07] MEDS: Isosorbide MONOnitrate (24 HR) 30 MG TAB.ER.24H PO SCH (08:07)
[2020-04-07] MEDS: dexAMETHasone 4 MG TABLET PO SCH (08:08)
[2020-04-07] MEDS: Insulin DETEMIR 100 UNIT/ML X5UNITS SUBQ SCH (08:09)
[2020-04-07 11:25] VITALS: BP 88/50
== END 2020-04-07 16:34 | disposition home or self-care (01) ==
LOC: 2NENU
PROVIDERS: ADMIT Internal Medicine; ATTEND Internal Medicine